=== PATIENT | male | born 1990 | race Caucasian/White ===

== ENCOUNTER 2019-12-11 08:00 | Outpatient (CLI) | payer SELFPAY | END 2019-12-11 23:59 | disposition home or self-care (01) | LOC: RAD 08:00 | PROVIDERS: ATTEND Nurse Practitioner Family | DX: I86.1 Scrotal varices (principal); N43.3 Hydrocele, unspecified; N50.89 Other specified disorders of the male genital organs; N50.811 Right testicular pain; N50.812 Left testicular pain | CPT/HCPCS: 76870 ==